=== PATIENT | female | born 1975 | race Caucasian/White ===

== ENCOUNTER 2017-06-02 17:39 | Emergency (ER) | payer OTHER ==
[~2017-06-02] VITALS: Ht 172.7 cm; Wt 108.9 kg
[2017-06-02] MEDS ORDERED: LISI-334 PO (17:48)
--- NOTE | 2017-06-02 18:22 | PHYS DOC ---
Past Medical History Past Medical History: Hypertension Past Surgical History: Other Additional Past Surgical Histo: left breast biopsy,laproscopy, mastopexy Alcohol Use: Occasionally Drug Use: None Adult General Chief Complaint Chief Complaint: LOWEREXTREMITY INJURY HPI HPI Patient is a 42 year old F who presents with right hip and ankle pain status post fall. He should states she was walking down a flight of stairs and fell down the last 5 stairs injuring her right ankle and right hip. Patient states she did not hit her head had no loss of consciousness. Patient rolled her ankle with immediate swelling and fell back on the stairs injuring her right hip. Patient unable to bear weight on the right lower extremity. Patient denies any other injuries. Patient has no other complaints. Review of Systems Review of Systems GEN: Denies fevers, chills, sweats HEENT: Denies blurred vision, sore throat CV: Denies chest pain RESP: Denies shortness of air, cough GI: Denies n/v/d NEURO: Denies confusion, dizziness MSK: Right hip and ankle pain Current Medications Current Medications Current Medications Medications (Trade) Dose Ordered Sig/Stephen Start Time Stop Time Status Last Admin Dose Admin Hydromorphone HCl (Dilaudid) 1 mg 1X ONCE 06/02/17 18:45 06/02/17 18:46 DC 06/02/17 18:26 1 MG Ondansetron HCl (Zofran Odt) 4 mg 1X ONCE 06/02/17 19:30 06/02/17 19:32 DC 06/02/17 19:31 4 MG Allergies Allergies Allergies Coded Allergies Type Severity Reaction Last Updated Verified Sulfa (Sulfonamide Antibiotics) Allergy Intermediate rash 06/02/17 Yes codeine Adverse Reaction Intermediate codeine 06/02/17 Yes Physical Exam Physical Exam GEN.: No apparent distress. Alert and oriented. HEENT: Head is normocephalic, atraumatic NECK: Supple. LUNGS: CTAB. HEART: RRR, S1, S2 present. Peripheral pulses intact ABDOMEN: Soft, nontender. Positive bowel sounds. EXTREMITIES: Without any cyanosis. Swelling and positive tenderness palpation to the right malleolus with decreased range of motion of the right ankle, positive right dorsal pedis pulse palpated, capillary refill to the toes of the right less than 2 seconds, no proximal fibular tenderness palpation on the right, tenderness palpation over the right greater trochanter of the proximal femur with decreased range of motion of the hip secondary to pain on the right NEUROLOGIC: Normal speech, normal tone PSYCHIATRIC: Normal affect, normal mood. SKIN: No ulcerations Current Patient Data Vital Signs Vital Signs Date Time Temp Pulse Resp B/P (MAP) Pulse Ox O2 Delivery O2 Flow Rate FiO2 06/02/17 19:31 89 20 139/75 (96) 96 Room Air 06/02/17 17:39 98.9 98.9 EKG EKG [] Radiology/Procedures Radiology/Procedures X-ray of the right hip and pelvis, right foot, right ankle no obvious fracture noted[] Course & Med Decision Making Course & Med Decision Making Pertinent Labs and Imaging studies reviewed. (See chart for details) ED course: Patient was seen and examined emergency room x-rays of the right hip, pelvis, ankle, foot were ordered 2019: Patient is reevaluated and updated on x-ray findings. Patient states she has too much pain to walk. Patient was placed in an Ortho-Glass stirrup splint and given crutches. Patient was told to elevate the leg at home and ice it and follow up with PCP for further evaluation and management. MDM: After reviewing the chart, CC/HPI/PMH, physical exam, [radiological results], I do not believe the patient sustained a significant traumatic fracture to the right lower extremity warranting further workup and/or admission at this time. Patient is stable for discharge. Patient be placed in an Ortho-Glass splint and given crutches and recommended follow-up for further evaluation and management. Additional verbal discharge instructions were provided to the patient and that if symptoms get worse or any new symptoms arise that are worrisome to the patient she is to return to the emergency room immediately [] Dragon Disclaimer Dragon Disclaimer This electronic medical record was generated, in whole or in part, using a voice recognition dictation system. Departure Departure Impression: Primary Impression: Right ankle sprain Additional Impressions: Right hip pain Right foot pain Disposition: 01 HOME, SELF-CARE Condition: IMPROVED Referrals: SHYLA MURDOCK DO (PCP) Patient Instructions: Ankle Sprain Additional Instructions: Please follow-up with your family physician in the next one to 2 days if symptoms increase Scripts Ibuprofen (IBUPROFEN) 800 Mg Tablet 800 MG PO PRN Q8HRS Y for INFLAMMATION for 10 Days, #30 TAB Prov: MARSHALL MORENO DO 06/02/17 Problem Qualifiers MARSHALL MORENO DO Jun 02, 2017 18:22
[2017-06-02] MEDS ORDERED: HYDROmorphone 2 MG/ML VIAL IM ONE (18:45)
[2017-06-02] MEDS ORDERED: ONDANSETRON ODT 4 MG TAB.RAPDIS. PO ONE (19:30)
--- NOTE | 2017-06-02 20:02 | RAD ---
History: Fall, pain. Comparison: None. Findings: AP view of the pelvis. AP and frog-leg views of the right hip. Intrauterine device is present. No acute pelvic fracture is identified. No hip fracture is seen. No dislocation is identified. Impression: No acute osseous traumatic injury identified. Electronically signed by: Ang Kelley MD (06/02/2017 7:59 PM) [facility]
--- NOTE | 2017-06-02 20:03 | RAD ---
History: Fall from stairs, pain. Comparison: None. Findings: AP, lateral, and oblique views of the right ankle. No acute fracture or dislocation is identified. Impression: No acute osseous traumatic injury identified. Electronically signed by: Ang Kelley MD (06/02/2017 8:00 PM) [facility]
[2017-06-02] MEDS ORDERED: IBUP-1060 PO (20:22)
[2017-06-02 21:16] VITALS: BP 126/74
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
== END 2017-06-02 21:33 | disposition home or self-care (01) ==
LOC: ER 17:39
DX: S93.401A Sprain of unspecified ligament of right ankle, initial encounter (principal); M25.551 Pain in right hip; M79.671 Pain in right foot; I10 Essential (primary) hypertension; Z88.5 Allergy status to narcotic agent; Z88.2 Allergy status to sulfonamides; W10.9XXA Fall (on) (from) unspecified stairs and steps, initial encounter; Y93.01 Activity, walking, marching and hiking; Y92.89 Other specified places as the place of occurrence of the external cause; Y99.8 Other external cause status
CPT/HCPCS: 29515; 73502; 73610; 73630; 96372; 99284; J1170; Q0162